=== PATIENT | male | born 1970 | race Caucasian/White ===

== ENCOUNTER 2020-01-18 05:30 | Day surgery (SDC) | payer BC ==
[~2020-01-18 05:30] MED LIST: Buffered Lidocaine 1% SYRIN* 1 ML/SYRINGE INTRADERM ONE
[2020-01-18] MEDS ORDERED: Famotidine IV* 10 MG/ML 2 ML (20 mg) ONE (05:57)
[2020-01-18] MEDS ORDERED: Buffered Lidocaine 1% SYRIN* 1 ML/SYRINGE INTRADERM ONE (05:57)
[2020-01-18] MEDS ORDERED: ceFAZolin 2 GM PREMIX in ORs 2 GM/50 ML BAG ONE (05:57)
[2020-01-18] MEDS ORDERED: Famotidine IV* 10 MG/ML 2 ML (20 mg) IV ONE (06:00)
[2020-01-18] MEDS ORDERED: Lactated Ringers 1000 ML Bag* 1,000 ML IV SCH (06:00)
[2020-01-18] MEDS ORDERED: Bupivacaine 0.5% W/EPI SDV* 30 ML VIAL ONE ×2 (06:58→07:43)
[2020-01-18] MEDS ORDERED: EPINEPHRINE 1 MG/ML 1 ML VIAL ONE (06:58)
[2020-01-18] MEDS ORDERED: Lidocaine 1% MPF ** 5 ML VIAL ONE (07:04)
[2020-01-18] MEDS ORDERED: ROPIVACAINE 5 MG/ML 30 ML BTL (0.5%) ONE (07:04)
[2020-01-18] MEDS ORDERED: fentaNYL* 50 MCG/ML 2 ML VIAL (100 MCG VIAL) ONE ×2 (07:37→09:58)
[2020-01-18] MEDS ORDERED: Midazolam* 1 MG/ML 2 ML VIAL (2 MG) ONE (07:38)
[2020-01-18] MEDS ORDERED: Succinylcholine* 20 MG/ML 10 ML VIAL ONE (07:42)
[2020-01-18] MEDS ORDERED: Bupivacaine 0.25% SDV* 30 ML ONE (07:45)
[2020-01-18] MEDS ORDERED: Rocuronium* 10 MG/ML VIAL ONE ×2 (07:57→08:49)
[2020-01-18] MEDS ORDERED: Glycopyrrolate IV* 0.2 MG/ML 1 ML VIAL ONE (08:06)
[2020-01-18] MEDS ORDERED: Propofol* 10 MG/ML 20 ML BTL ONE (08:06)
[2020-01-18] MEDS ORDERED: Sugammadex * 200 MG/2 ML VIAL IV PUSH ONE (09:25)
[2020-01-18] MEDS ORDERED: Acetaminophen IV 1GM/100ML * 1,000 MG/100 ML VIAL IVPB ONE (09:31)
[2020-01-18] MEDS ORDERED: Naloxone* 0.4 MG/ML 1 ML VIAL IV PRN (09:31)
[2020-01-18] MEDS ORDERED: Acetaminophen IV 1GM/100ML * 100 ML ONE (09:58)
[2020-01-18] MEDS: fentaNYL* 50 MCG/ML 2 ML VIAL (100 MCG VIAL) IV PRN ×3 (09:59→10:34)
[2020-01-18] MEDS ORDERED: oxyCODONE/Acetamin 5/325 MG* TAB ONE (10:29)
[2020-01-18] MEDS ORDERED: Ondansetron INJ* 2 MG/ML VIAL ONE (10:33)
[2020-01-18] MEDS ORDERED: Metoclopramide IV* 5 MG/ML 2 ML VIAL ONE (10:33)
[2020-01-18 11:27] VITALS: BP 127/78
--- NOTE | 2020-01-19 09:33 | OP ---
DATE OF OPERATION: 01/18/20 - [facility] DATE OF : 68 SURGEON: Dr. Bharat Caraballo. MAT LINKER: JOMAR Keith. A physician cafeteria assistant was required for the length of the procedure for assistance with patient positioning, retraction, instrumentation, knee manipulation, and closure. ANESTHESIOLOGIST: [facility] anesthesiologist. ANESTHESIA: General anesthesia, 25 cc of Marcaine 0.25% without epinephrine, local anesthetic. PRE-OP DIAGNOSIS: Right knee anterior cruciate ligament tear. POST-OP DIAGNOSIS: Right knee anterior cruciate ligament tear. OPERATIVE PROCEDURE: Right knee arthroscopic anterior cruciate ligament reconstruction with [id number]-[id number] allograft. ANTIBIOTICS: Ancef 2 g IV. IV FLUIDS: See Anesthesia note. [id number] TIME: 85 minutes. TOURNIQUET TIME: 90 minutes at 300 mmHg right proximal thigh tourniquet. SPECIMEN: None. IMPLANTS: [employer] interference screws, 9 x 20 mm in the femur 10 x 30 mm in the tibia. Cskz-weeecde-[id number] allograft. ESTIMATED BLOOD LOSS: Minimal. COMPLICATIONS: None. INDICATIONS FOR PROCEDURE: A 49-year-old man, knee injury skiing on 12/11/19. Diagnosis made. Discussed with the patient nonoperative and operative treatment. Discussed a variety of graft options. We decided a ACL reconstruction surgery with [id number] allograft. Discussed risks and potential complications of surgery. DESCRIPTION OF PROCEDURE: In preop holding, the patient signed a written consent. Operative extremity was marked in preoperative holding. The patient was taken back to the operating room and placed supine on the operating room table. Sedated and intubated. A blanket bump was placed under the right hemipelvis. Tourniquet was placed about the right proximal thigh. Right lower extremity was prepped and draped. Surgical time-out was performed. Esmarch applied and tourniquet elevated. Established an anterolateral knee arthroscopy portal using standard technique. Commenced diagnostic arthroscopy. There was a small area of grade 1 articular cartilage wear to the trochlear groove. No other patellofemoral compartment articular cartilage damage. Some synovitis anteriorly. Dropped down to the medial compartment. No significant articular cartilage damage. The posterior horn of the medial meniscus had some undulations to it. I made an anteromedial knee arthroscopy portal under direct visualization. I probed the medial meniscus and there was no tear whatsoever. Moved to the intracondylar notch. Confirmed ACL tear. Moved to the lateral compartment. No meniscus injury nor articular cartilage injury. Put in position [place] knee positioner. Performed notchplasty. Using a variety of anatomic landmarks, placed a Beath pin in the femur. Did so in hyperflexion using an around the back guide. I next moved to the back table. I prepared the graft. Placed 1 FiberWire #5 suture proximally and 2 distally. Kept graft on the back table under tension. I next rolled a 10.5 mm femoral tunnel, which was between 25 and 30 mm long. Returned the knee to 85 degrees of flexion. Used a tibial pin guide set to 57.5 degrees. I made an anteromedial proximal lower leg incision, dissected down to bone. Placed the guide, placed the Beath pin, and then drilled a 10.5 mm tibial tunnel. I placed a passing suture and then passed my graft. Used a sat instructor, then placed Nitinol wire, then tapped, then placed screw first in the femur then in the tibia. Excellent squeak of both screws. Placed the tibial screw with the knee fully extended with a posterior drawer maneuver applied. No laxity with ACL stress testing on exam. I visualized the ACL in a variety of knee flexion positions with the arthroscope and the graft looked robust and under good tension. I liked my tunnels as well. Sutures were cut. I closed the fascia over a large incision with figure-of- eight stitches using Vicryl 0 suture. Closed subcutaneous tissue with buried simple stitches using Vicryl 2.0 suture. I closed all skin incisions with nylon 3.0 suture, [id number] stitches and a running stitch. Local anesthesia injected. Xeroform, 4x4's, ABDs, sterile Webril, Moreno bandage. Cooling unit applied. Knee brace locked in extension. The patient awakened, extubated, and transferred to the PACU. DISPOSITION: Percocet as needed for pain control. Aspirin 81 mg p.o. b.i.d. x2 weeks for DVT prophylaxis. Keflex short course for infection prophylaxis. The patient will follow up with me in 10 to 14 days. Physical therapy will start immediately. [id number]/[facility] #: [id number] [facility]
== END 2020-01-18 12:35 | disposition home or self-care (01) ==
LOC: OR 05:30
PROVIDERS: ATTEND Orthopaedic Surgery
DX: S83.511A Sprain of anterior cruciate ligament of right knee, initial encounter (principal); V00.321A Fall from snow-skis, initial encounter; Y93.23 Activity, snow (alpine) (downhill) skiing, snowboarding, sledding, tobogganing and snow tubing; Y92.39 Other specified sports and athletic area as the place of occurrence of the external cause; E78.00 Pure hypercholesterolemia, unspecified
CPT/HCPCS: A9270-GY; C1713; C1776; J0330; J0690; J2250; J2405; J2704; J2765; J2795; J3010; J3490